=== PATIENT | female | born 2000 | race Caucasian/White ===

== ENCOUNTER 2019-04-10 11:31 | Emergency (ER) | payer OTHER ==
[2019-04-10 11:37] VITALS: PULSE 94; BMI 24.7
--- NOTE | 2019-04-10 11:49 | PDOC ---
History of Present Illness - General Chief Complaint: Vaginal Bleeding Stated Complaint: VAGINAL BLEEDING Time Seen by Provider: 04/10/19 11:48 Past History - Past Medical History Allergies/Adverse Reactions: Allergies Allergy/AdvReac Type Severity Reaction Status Date / Time No Known Allergies Allergy Verified 05/26/15 23:53 Home Medications: Ambulatory Orders Fexofenadine/Pseudoephedrine [Isabelle-D 24 Hour Tablet] 1 each PO DAILY #7 tab.sr.24h 05/27/15 - Immunization History Immunization Up to Date: Yes - Suicide/Smoking/Psychosocial Hx Smoking History: Never smoked Hx Alcohol Use: No Drug/Substance Use Hx: No Substance Use Type: None *Physical Exam - Vital Signs Last Vital Signs Temp Pulse Resp BP Pulse Ox 97.8 F 94 H 16 131/83 99 04/10/19 11:34 04/10/19 11:34 04/10/19 11:34 04/10/19 11:34 04/10/19 11:34
--- NOTE | 2019-04-10 12:04 | PDOC ---
History of Present Illness - General Chief Complaint: Vaginal Bleeding Stated Complaint: VAGINAL BLEEDING Time Seen by Provider: 04/10/19 11:48 History Source: Patient Exam Limitations: No Limitations - History of Present Illness Initial Comments: 04/10/19 13:08 Vero Millard is a 18y previously healthy female presenting with vaginal bleeding. She started vaginal bleeding in January. Constant heavy bleeding with blood clots soaking 4 heavy pads/day. Associated painful suprapubic cramping. Cycles between bleeding/pain for 1-2 weeks then relief for 2-5d with thick white vaginal discharge. Treated with fluconazole and iron pills while in [place] from January 14 to April 07. Also complains of constipation for past 3mo, bowel mvmts every 2-3d. Denies fever, nausea/vomiting, SOB, chest pain, urinary changes. She started a control patch at the end of December. Was switched to control pill in January, completed 21d course. Currently not taking any control. Sexually active with 1 male partner in past 6mo, no protection, no past pregnancies/STI. Past History - Past Medical History Allergies/Adverse Reactions: Allergies Allergy/AdvReac Type Severity Reaction Status Date / Time No Known Allergies Allergy Verified 05/26/15 23:53 Home Medications: Ambulatory Orders Fexofenadine/Pseudoephedrine [Isabelle-D 24 Hour Tablet] 1 each PO DAILY #7 tab.sr.24h 05/27/15 - Immunization History Immunization Up to Date: Yes - Suicide/Smoking/Psychosocial Hx Smoking History: Never smoked Hx Alcohol Use: No Drug/Substance Use Hx: No Substance Use Type: None Review of Systems - Review of Systems Constitutional: No: Chills, Fever, Weakness HEENTM: No: Eye Pain, Ear Pain, Nose Pain, Throat Pain, Throat Swelling Respiratory: No: Cough, Shortness of Breath, Wheezing Cardiac (ROS): No: Chest Pain, Edema, Palpitations, Syncope, Chest Tightness ABD/GI: Yes: Constipated. No: Abdominal Distended, Diarrhea, Nausea, Rectal Bleeding, Vomiting, Indigestion, Tarry Stools : No: Burning, Dysuria, Discharge, Flank Pain, Hematuria, Incontinence Musculoskeletal: No: Back Pain, Joint Pain, Joint Swelling, Muscle Pain, Muscle Weakness Integumentary: No: Bruising, Change in Color, Erythema, Flushing Neurological: No: Headache, Numbness, Paresthesia, Seizure, Tingling, Tremors Psychiatric: No: Anxiety, Depression Endocrine: No: Excessive Sweating, Flushing, Intolerance to Cold, Intolerance to Heat Hematologic/Lymphatic: Yes: Blood Clots. No: Anemia *Physical Exam - Vital Signs Last Vital Signs Temp Pulse Resp BP Pulse Ox 97.8 F 94 H 16 131/83 99 04/10/19 11:34 04/10/19 11:34 04/10/19 11:34 04/10/19 11:34 04/10/19 11:34 - Physical Exam General Appearance: Yes: Nourished, Appropriately Dressed. No: Apparent Distress HEENT: positive: EOMI, MARJ, Normal Voice, Hearing Grossly Normal. negative: Rhinorrhea, Sinus Tenderness Respiratory/Chest: positive: Lungs Clear, Normal Breath Sounds. negative: Chest Tender, Respiratory Distress, Accessory Muscle Use, Crackles, Rales, Rhonchi, Stridor, Wheezing Cardiovascular: positive: Regular Rhythm, Regular Rate, S1, S2. negative: Edema , Murmur Female Pelvic Exam: positive: cervical os closed, normal adnexa, vaginal bleeding (gross), other (no cervical tenderness). negative: discharge, lesions , adnexal tenderness (gross blood in vault) Gastrointestinal/Abdominal: positive: Normal Bowel Sounds, Tender (mild tenderness palpation suprapubic region), Flat, Soft. negative: Organomegaly, Distended, Guarding, Rebound, Tenderness, Hernia, Mass Musculoskeletal: positive: Normal Inspection. negative: CVA Tenderness (R), CVA Tenderness (L), Vertebral Tenderness Neurologic: positive: Fully Oriented, Alert, Normal Mood/Affect, Normal Response. negative: Numbness, Confused, Disoriented, Depressed Affect ED Treatment Course - LABORATORY CBC & Chemistry Diagram: 04/10/19 14:02 04/10/19 14:02 Medical Decision Making - Critical Care Time Total Critical Care Time (minutes): 30 Critical Care Statement: The care of this patient involved high complexity decision making to prevent further life threatening deterioration of the patient 's condition and/or to evaluate & treat vital organ system(s) failure or risk of failure. - Medical Decision Making 04/10/19 13:05 CBC CMP HCG UA coags type/screen TVUS Declined tylenol for pain cessation in ED Pelvic exam showed gross blood + clots in vaginal vault, closed os, no cervical tenderness CBC, CMP, coags normal UA showed 2+ blood, trace ketones HCG neg Vero Millard is a 18y previously healthy female presenting with vaginal bleeding. Likely menstrual dysregulation since not . Pelvic exam showed gross blood + clots in vaginal vault, closed os, no cervical tenderness. UA showed 2+ blood, trace ketones, no sign of infection. Declined tylenol for pain cessation in ED. Ultrasound did not show any acute pathology. D/c home with obgyn f/u for continual vaginal bleeding *DC/Admit/Observation/Transfer Diagnosis at time of Disposition: Vaginal bleeding - Discharge Dispostion Disposition: HOME Condition at time of disposition: Stable Decision to Admit order: No - Referrals Referrals: Dede Mane MD [Staff Physician] - - Patient Instructions Printed Discharge Instructions: DI for Vaginal Bleeding Additional Instructions: You were seen in the ED for vaginal bleeding. Your lab work and ultrasound imaging did not show anything concerning. You are not and your blood levels are normal. Please set up an appointment with Dr. Mane [facility] to follow up for vaginal bleeding. You can take tylenol if you have worsening pain Come back to the ED if you have worsening bleeding, fever, or vomiting Print Language: LAO - Post Discharge Activity
[2019-04-10] MEDS ORDERED: ACETAMINOPHEN 325 MG TABLET (FP) PO ONE (13:04)
[2019-04-10 13:22] VITALS: BP 113/74; TEMP 99.4
[2019-04-10 14:32] LABS: BASO % 0.5 % (0-2.0); EOS % 0.9 % (0-4.5); HEMATOCRIT 34.7 % (32.4-45.2); HEMOGLOBIN 11.3 GM/dL (10.7-15.3); LYMPH % 27.7 % (8-40); MCH 26.2 pg (25.7-33.7); MCHC 32.5 g/dl (32.0-36.0); MEAN CELL VOLUME 80.8 fl (80-96); MEAN PLT VOLUME 8.6 fl (7.5-11.1); MONO % 7.7 % (3.8-10.2); NEUT % 63.2 % (42.8-82.8); PLATELET COUNT 290 K/MM3 (134-434); RBC 4.29 M/mm3 (3.60-5.2); RDW 16.3 % (11.6-15.6); WHITE BLOOD COUNT 4.6 K/mm3 (4.0-10.0)
[2019-04-10 14:40] LABS: INR 0.97 (0.83-1.09); PROTHROMBIN TIME (PATIENT) 11.5 SEC (9.7-13.0)
[2019-04-10 14:43] LABS: ACTIVATED PTT 28.8 SECONDS (25.2-36.5)
[2019-04-10 14:54] LABS: ALBUMIN 3.4 g/dl (3.4-5.0); BILIRUBIN,TOTAL 0.4 mg/dL (0.2-1); BLOOD UREA NITROGEN 11.5 mg/dL (7-18); CALCIUM 8.8 mg/dL (8.5-10.1); CREATININE 0.7 mg/dL (0.55-1.3); POTASSIUM 5.2 mmol/L (3.5-5.1); TOT PROT 7.3 g/dl (6.4-8.2)
[2019-04-10 15:21] LABS: EPI CELLS 0.5 /HPF (0-5/HPF); HYALINE CASTS 2 /lpf (0-8); URINE APPEARANCE CLEAR; URINE BACTERIA 15.4 /hpf (NEGATIVE); URINE BILIRUBIN NEGATIVE (NEGATIVE); URINE COLOR YELLOW; URINE GLUCOSE (UA) NEGATIVE (NEGATIVE); URINE KETONE TRACE (NEGATIVE); URINE LEUK ESTERASE NEGATIVE (NEGATIVE); URINE NITRITE NEGATIVE (NEGATIVE); URINE PROTEIN NEGATIVE (NEGATIVE); URINE RBC 86 /hpf (0-4); URINE UROBILINOGEN 0.2 mg/dL (0.2-1.0); URINE WBC 1 /hpf (0-5)
--- NOTE | 2019-04-10 15:40 | PDOC ---
Documentation entered by Jaqueline Willett SCRIBE, acting as scribe for Chelsey Fernandez MD. Chelsey Fernandez MD: This documentation has been prepared by the Brennon riggins Collisia, SCRIBE, under my direction and personally reviewed by me in its entirety. I confirm that the documentation accurately reflects all work, treatment, procedures, and medical decision making performed by me. Attending Attestation - Resident Resident Name: Marques Roth - [facility] HPI: 04/10/19 13:19 The patient is a 18 year old female with no significant past medical history who presents to the emergency department with vaginal bleeding for 2 months. The patient states that she has been intermittently bleeding and passing clots for about 2 months since February. She endorses soaking about 4 pads a day as well as experiencing some increased lower abdominal cramping. she states that she visited [place] in December by which she came back several days ago. She states that while on vacation she saw a doctor who switched the patient from a control patch that she was on to a trial of control pills. The patient states that a week after being put on the control pills she began bleeding again with some intermittent pain as well. The patient denies any episodes like this in the past, she states that she has 1 sexual partner and does not use protection. The patient denies any fever, chills, nausea, vomiting , diarrhea, constipation or urinary symptoms. She denies any chest pain, shortness of breath, headache or dizziness. She does endorse some episodes of lightheadedness when she wakes up and gets out of bed. The patient denies any regular OBgyn care. She states that she came to the ED for further evaluation. She denies any other complaints. - Physicial Exam PE: 04/10/19 13:20 ADULT EXAM GENERAL: Awake, alert, and fully oriented, in no acute distress HEAD: No signs of trauma EYES: PERRLA, EOMI, sclera anicteric, conjunctiva clear ENT: Auricles normal inspection, hearing grossly normal, nares patent, oropharynx clear without exudates. Moist mucosa NECK: Normal ROM, supple, no lymphadenopathy, JVD, or masses LUNGS: Breath sounds equal, clear to auscultation bilaterally. No wheezes, and no crackles HEART: Regular rate and rhythm, normal S1 and S2, no murmurs, rubs or gallops ABDOMEN: Soft, nontender, normoactive bowel sounds. No guarding, no rebound. No masses EXTREMITIES: Normal range of motion, no edema. No clubbing or cyanosis. No cords, erythema, or tenderness NEUROLOGICAL: Cranial nerves II through XII grossly intact. Normal speech, normal gait SKIN: Warm, Dry, normal turgor, no rashes or lesions noted. - Medical Decision Making 04/10/19 15:38 Pt presents to the Ed complaining of a three week history of heavy vaginal bleeding and cramps. Differential includes dysfunctional uterine bleeding, fibroids, less likely ectopic or SAB. Os is closed on pelvic exam. No anemia on CBC. Will discharge home with [facility] follow up if not . If patient is , will check transvaginal US. 04/10/19 15:38 04/10/19 15:39
== END 2019-04-10 16:57 | disposition home or self-care (01) ==
LOC: JER 11:31
DX: N93.9 Abnormal uterine and vaginal bleeding, unspecified (principal)
CPT/HCPCS: 36415; 76830-TC; 80053; 81003; 84703; 85025; 85610; 85730; 86850; 86900; 86901; 87077; 87086; 99283-25

== ENCOUNTER 2021-10-21 23:23 | Emergency (ER) | payer OTHER ==
[2021-10-21 23:30] VITALS: BP 103/65; PULSE 103; BMI 28.3
[2021-10-21] MEDS ORDERED: LACTATED RINGERS SOLUTION 1000 ML INFUS.BAG IV ONE (23:59)
[2021-10-22 00:44] LABS: BASO % 0.1 % (0-2.0); EOS % 0.2 % (0-4.5); HEMATOCRIT 32.5 % (32.4-45.2); HEMOGLOBIN 10.9 GM/dL (10.7-15.3); LYMPH % 15.3 % (8-40); MCH 28.5 pg (25.7-33.7); MCHC 33.5 g/dl (32.0-36.0); MEAN CELL VOLUME 85.2 fl (80-96); MEAN PLT VOLUME 7.6 fl (7.5-11.1); MONO % 8.1 % (3.8-10.2); NEUT % 76.3 % (42.8-82.8); PLATELET COUNT 265 10^3/uL (134-434); RBC 3.82 M/mm3 (3.60-5.2); WHITE BLOOD COUNT 6.5 K/mm3 (4.0-10.0)
[2021-10-22 00:47] LABS: EPI CELLS >36 /uL (0-25.1); HYALINE CASTS 6 /uL (0-3.1); URINE APPEARANCE CLOUDY; URINE BACTERIA 97 /uL (0-1359); URINE BILIRUBIN 1+ (NEGATIVE); URINE COLOR ORANGE; URINE GLUCOSE (UA) NEGATIVE (NEGATIVE); URINE KETONE TRACE (NEGATIVE); URINE LEUK ESTERASE TRACE (NEGATIVE); URINE NITRITE NEGATIVE (NEGATIVE); URINE PROTEIN 1+ (NEGATIVE); URINE RBC 10 /uL (0-23.9); URINE WBC 35 /uL (0-25.8)
[2021-10-22 01:05] LABS: ALBUMIN 2.9 g/dl (3.4-5.0); CALCIUM 7.8 mg/dL (8.5-10.1)
[2021-10-22 01:08] LABS: CREATININE 0.5 mg/dL (0.55-1.3)
[2021-10-22 01:10] LABS: BILIRUBIN,TOTAL 1.1 mg/dL (0.2-1)
[2021-10-22 02:47] VITALS: TEMP 97.7
== END 2021-10-22 03:54 | disposition home or self-care (01) ==
LOC: JER 23:23
PROC: 3E0337Z Introduction of Electrolytic and Water Balance Substance into Peripheral Vein, Percutaneous Approach (ICD-10-PCS; principal; 2021-10-21)
DX: O21.0 Mild hyperemesis gravidarum (principal); O26.893 Other specified pregnancy related conditions, third trimester; H11.33 Conjunctival hemorrhage, bilateral; Z3A.30 30 weeks gestation of pregnancy
CPT/HCPCS: 36415; 80053; 81003; 85025; 99284-25; C9803; U0003; U0005